=== PATIENT | female | born 1945 | race Caucasian/White ===

== ENCOUNTER 2018-12-25 14:05 | Emergency (ER) | payer OTHER ==
[2018-12-25] MEDS ORDERED: IPRATROPIUM BROM 0.5MG/2.5ML ONE (15:40)
[2018-12-25] MEDS ORDERED: METHYLPREDNISOLONE 125 MG INJ ONE (15:40)
[2018-12-25] MEDS ORDERED: LEVALBUTEROL 1.25 MG/3 ML NEB ONE (15:40)
[2018-12-25] MEDS ORDERED: ACETAMINOPHEN 325 MG/SUPP PR ONE (15:41)
[2018-12-25] MEDS ORDERED: NA CHLORIDE 0.9% 1,000 ML ONE (15:41)
[2018-12-25] MEDS ORDERED: CEFTRIAXONE/SWI 1gm 1 GM/10 ML SYR ONE (15:41)
[2018-12-25] MEDS ORDERED: NA CHLORIDE 0.9% 500 ML ONE (15:41)
[2018-12-25 15:49] LABS: Absolute Lymphocytes (CBC) 0.3 K/uL (0.7-4.9); Basophils % 0.7 % (0-1.3); Hematocrit 37.2 % (36.0-45.0); Lymphocytes % 5.5 % (15.3-44.8); MPV 8.9 fL (7.6-11.3)
[2018-12-25 15:52] LABS: Urine Blood 1+ (NEG); Urine Glucose NEGATIVE (NEG); Urine Protein TRACE (NEG); Urine pH 6.5 (5.0-7.0)
[2018-12-25] MEDS ORDERED: AZITHROMYCIN IV 500 MG in NA CHLORIDE 0.9% 250 ML IVPB ONE (16:00)
[2018-12-25 16:02] LABS: ALT/SGPT 58 U/L (12-78); AST/SGOT 45 U/L (15-37); Albumin 3.7 g/dL (3.4-5.0); Alkaline Phosphatase 52 U/L (45-117); BUN Blood Urea Nitrogen 10 mg/dL (7-18); Bicarbonate 29 mmol/L (21-32); Bilirubin Direct 0.3 mg/dL (0-0.2); Bilirubin Total 1.1 mg/dL (0.2-1.0); Glucose Level 125 mg/dL (74-106); Lipase 76 U/L (73-393); NT PRO-BNP 186 pg/mL (<125); Potassium 3.5 mmol/L (3.5-5.1); Protein, Total 7.1 g/dL (6.4-8.2); Sodium Level 137 mmol/L (136-145); Troponin (Emerg Dept Use Only) 0.03 ng/mL (0.0-0.045)
--- NOTE | 2018-12-25 17:26 | ER ---
Nurse's Notes [facility] Name: Bre Rodriguez Age: 73 yrs Sex: Female : 1945 Arrival Date: 12/25/2018 Time: 14:06 Bed 28 Private MD: Diagnosis: Dyspnea;Dyspnea, unspecified;Urinary tract infection, site not specified;Chronic obstructive pulmonary disease with (acute) exacerbation;Fever, unspecified;Immunodeficiency, unspecified-SECONDARY TO MEDS Presentation: 12/25 14:08 Presenting complaint: Patient states: "I was having trouble breathing last night and aj1 was really cold and shaking, and I have an upset stomach, and I have a hard time breathing because anytime I don't feel good it acts up with my COPD" Denies cough, congestion. Denies N/V/D. Transition of care: patient was not received from another setting of care. Onset of symptoms was December 24, 2018. Risk Assessment: Do you want to hurt yourself or someone else? Patient reports no desire to harm self or others. Initial Sepsis Screen: Does the patient meet any 2 criteria? HR > 90 bpm. No. Patient's initial sepsis screen is negative. Does the patient have a suspected source of infection? No. Patient's initial sepsis screen is negative. Care prior to arrival: None. 14:08 Method Of Arrival: Wheelchair aj1 14:08 Acuity: NELA 3 aj1 Triage Assessment: 14:09 General: Appears in no apparent distress. uncomfortable, Behavior is calm. Pain: aj1 Complains of pain in right hip Pain currently is 5 out of 10 on a pain scale. Neuro: Level of Consciousness is awake, alert, obeys commands. Cardiovascular: Patient's skin is warm and dry. Respiratory: Reports shortness of breath on exertion Airway is patent Respiratory effort is even, unlabored, Respiratory pattern is regular, symmetrical, Onset: The symptoms/episode began/occurred yesterday, the patient has mild shortness of breath. Historical: - Allergies: 14:09 No Known Allergies; aj1 - PMHx: 14:09 COPD; RA; aj1 - Immunization history:: Adult Immunizations up to date. - Ebola Screening: : Patient denies travel to an Ebola-affected area in the 21 days before illness onset. - Social history:: Smoking status: unknown. - Family history:: not pertinent. Screenin:15 Abuse screen: Denies threats or abuse. Nutritional screening: No deficits noted. tr5 Tuberculosis screening: No symptoms or risk factors identified. Fall Risk None identified. Assessment: 14:15 General: Appears uncomfortable, Behavior is calm, cooperative, appropriate for age. tr5 Pain: Denies pain. Neuro: Level of Consciousness is awake, alert, obeys commands, Oriented to person, place, time, situation, Press Tender are equal bilaterally Weakness Reports headache weakness. Cardiovascular: Heart tones present Capillary refill < 3 seconds Pulses are all present. Edema is absent. Rhythm is regular. Respiratory: Reports shortness of breath at rest Airway is patent Respiratory effort is even, Respiratory pattern is regular, symmetrical, Breath sounds are diminished bilaterally. GI: No signs and/or symptoms were reported involving the gastrointestinal system. : No signs and/or symptoms were reported regarding the genitourinary system. EENT: No signs and/or symptoms were reported regarding the EENT system. Derm: Skin is intact, Skin is dry, Skin is normal. Musculoskeletal: Capillary refill < 3 seconds, Range of motion: intact in all extremities. 15:00 Reassessment: Patient appears in no apparent distress at this time. Patient and/or tr5 family updated on plan of care and expected duration. Pain level reassessed. Patient is alert, oriented x 3, equal unlabored respirations, skin warm/dry/pink. 16:00 Reassessment: Patient appears in no apparent distress at this time. Patient and/or tr5 family updated on plan of care and expected duration. Pain level reassessed. Patient is alert, oriented x 3, equal unlabored respirations, skin warm/dry/pink. Pt's at bedside. Pt in bed watching tv. 17:00 Reassessment: Patient and/or family updated on plan of care and expected duration. Pain tr5 level reassessed. Patient is alert, oriented x 3, equal unlabored respirations, skin warm/dry/pink. Patient states feeling better. 18:00 Reassessment: No changes from previously documented assessment. Patient and/or family tr5 updated on plan of care and expected duration. Pain level reassessed. Patient is alert, oriented x 3, equal unlabored respirations, skin warm/dry/pink. Patient states symptoms have improved. Vital Signs: 14:09 BP 129 / 72; Pulse 102; Resp 20; Temp 100.4; Pulse Ox 96% on 3 lpm NC; Height 5 ft. 4 aj1 in. (162.56 cm) (R); Pain 5/10; 15:00 BP 131 / 70; Pulse 89; Resp 25; Pulse Ox 100% on 3% Nebulizer Mask; tr5 16:00 BP 109 / 63; Pulse 90; Resp 22; Pulse Ox 98% on 3% Nebulizer Mask; tr5 17:00 BP 91 / 74; Pulse 97; Resp 22; Pulse Ox 100% on 3 lpm NC; tr5 18:01 BP 99 / 59; Pulse 90; Resp 17; Temp 98.9(O); Pulse Ox 99% on 3 lpm NC; tr5 ED Course: 14:06 Patient arrived in ED. as 14:09 Triage completed. aj1 14:09 Arm band placed on Patient placed in waiting room, Patient notified of wait time. aj1 14:15 Bed in low position. Call light in reach. Side rails up X 1. Pulse ox on. NIBP on. tr5 14:37 Roderick Daniels, RN is Primary Nurse. tr5 14:47 Hector Rocha MD is Attending Physician. maverick 15:00 Inserted saline lock: 20 gauge in left antecubital area, using aseptic technique. tr5 Oxygen administration via nasal cannula \\T\\ 3L/min. 15:19 Initial lab(s) drawn, by vt, sent to lab. First set of blood cultures drawn by me, tr5 Urine collected: clean catch specimen, clear. 15:45 Second set of blood cultures drawn. tr5 16:03 Note: Pt refused portable chest xray. Angela notified at nurses station.. jr1 16:40 EKG done, by driver license technician. reviewed by Hector Rocha MD. sm3 17:23 Del Ochoa MD is Referral Physician. maverick 18:20 No provider procedures requiring assistance completed. IV discontinued. tr5 Administered Medications: 15:58 Drug: Tylenol 650 mg Route: PO; tr5 16:30 Follow up: Response: No adverse reaction tr5 15:59 Drug: NS 0.9% 500 ml Route: IV; Rate: bolus; Site: left antecubital; tr5 16:15 Follow up: Response: No adverse reaction; IV Status: Completed infusion; IV Intake: tr5 500ml 16:04 Drug: Rocephin 1 grams Route: IV; Rate: per protocol; Site: left antecubital; tr5 16:04 Drug: Zithromax 500 mg Route: IVPB; Infused Over: 1 hrs; Site: left antecubital; tr5 16:05 Drug: SOLU-Medrol 125 mg Route: IVP; Site: left antecubital; tr5 16:16 Follow up: Response: No adverse reaction tr5 16:05 Drug: Xopenex 3.75 mg Route: Inhalation; tr5 16:05 Drug: AtroVENT Aerosol 0.5 mg Route: Inhalation; tr5 16:16 Drug: NS 0.9% 1000 ml Route: IV; Rate: 125 ml/hr; Site: left antecubital; tr5 18:15 Drug: LevOfloxacin 750 mg Route: PO; tr5 18:17 Follow up: Response: Medication administered at discharge. tr5 18:15 Drug: predniSONE 20 mg Route: PO; tr5 18:16 Follow up: Response: Medication administered at discharge. tr5 Intake: 16:15 IV: 500ml; Total: 500ml. tr5 Outcome: 18:20 AMA AMA form signed tr5 18:20 Condition: stable 18:20 Discharge instructions given to patient, significant other, Instructed on discharge instructions, follow up and referral plans. medication usage, Demonstrated understanding of instructions, follow-up care, medications, Prescriptions given X 3. 18:22 Patient left the ED. tr5 Addendum: 12/28/2018 15:00 Addendum: Culture Results: Positive urine culture. Positive blood culture. pt was i w admitted to hospital on 12-26-18 for positive cultures, per Dr. Ochoa. Signatures: Carie Mason, RN RN Hector Vera MD MD cha Ringgold, Jennifer jr1 Dalila Choi Irene, RN Belem Yoo RN RN ss Montes, Shakira 3 Roderick Daniels, [place] RN tr5 Corrections: (The following items were deleted from the chart) 12/25 16:04 16:01 Note: PT REFUSED PORTABLE CHEST XRAY. ANGELA NOTIFIED AT NURSES STATION.. jr1 jr1 18:19 18:01 BP 99 / 59; Pulse 90bpm; Resp 17bpm; Pulse Ox 99% 3 lpm Nasal Cannula; tr5 tr5 12/29 07:42 12/28/2018 15:00 Addendum: Culture Results: Positive urine culture. No further action iw required. Bacteria sensitive to prescribed antibiotic. ss
--- NOTE | 2018-12-25 17:27 | EDPHYS ---
Physician Documentation [facility] Name: Bre Rodriguez Age: 73 yrs Sex: Female : 1945 Arrival Date: 12/25/2018 Time: 14:06 Bed 28 Private MD: ED Physician Hector Rocha HPI: 12/25 15:16 This 73 yrs old Female presents to ER via Wheelchair with complaints of maverick Breathing Difficulty, Headache. 15:16 The patient has shortness of breath at rest, with light activity. Onset: The maverick symptoms/episode began/occurred 2 day(s) ago. Duration: The symptoms are continuous, and are steadily getting worse. The patient's shortness of breath has no apparent modifying factors. Associated signs and symptoms: Pertinent positives: non-productive cough, dizziness, fever. Severity of symptoms: At their worst the symptoms were mild moderate in the emergency department the symptoms are unchanged. The patient has not experienced similar symptoms in the past. Historical: - Allergies: 14:09 No Known Allergies; aj1 - PMHx: 14:09 COPD; RA; aj1 - Immunization history:: Adult Immunizations up to date. - Ebola Screening: : Patient denies travel to an Ebola-affected area in the 21 days before illness onset. - Social history:: Smoking status: unknown. - Family history:: not pertinent. ROS: 15:16 Constitutional: Negative for fever, chills, and weight loss, Eyes: Negative for injury, maverick pain, redness, and discharge, ENT: Negative for injury, pain, and discharge, Neck: Negative for injury, pain, and swelling, Cardiovascular: Negative for chest pain, palpitations, and edema, Abdomen/GI: Negative for abdominal pain, nausea, vomiting, diarrhea, and constipation, Back: Negative for injury and pain, : Negative for injury, bleeding, discharge, and swelling, MS/Extremity: Negative for injury and deformity, Skin: Negative for injury, rash, and discoloration, Neuro: Negative for headache, weakness, numbness, tingling, and seizure, Psych: Negative for depression, anxiety, suicide ideation, homicidal ideation, and hallucinations, Allergy/Immunology: Negative for hives, rash, and allergies, Endocrine: Negative for neck swelling, polydipsia, polyuria, polyphagia, and marked weight changes, Hematologic/Lymphatic: Negative for swollen nodes, abnormal bleeding, and unusual bruising. 15:16 Respiratory: Positive for cough, shortness of breath, at rest. Exam: 15:16 Constitutional: This is a well developed, well nourished patient who is awake, alert, maverick and in no acute distress. Head/Face: Normocephalic, atraumatic. Eyes: Pupils equal round and reactive to light, extra-ocular motions intact. Lids and lashes normal. Conjunctiva and sclera are non-icteric and not injected. Cornea within normal limits. Periorbital areas with no swelling, redness, or edema. ENT: Nares patent. No nasal discharge, no septal abnormalities noted. Tympanic membranes are normal and external auditory canals are clear. Oropharynx with no redness, swelling, or masses, exudates, or evidence of obstruction, uvula midline. Mucous membranes moist. Neck: Trachea midline, no thyromegaly or masses palpated, and no cervical lymphadenopathy. Supple, full range of motion without nuchal rigidity, or vertebral point tenderness. No Meningismus. Chest/axilla: Normal chest wall appearance and motion. Nontender with no deformity. No lesions are appreciated. Abdomen/GI: Soft, non-tender, with normal bowel sounds. No distension or tympany. No guarding or rebound. No evidence of tenderness throughout. Back: No spinal tenderness. No costovertebral tenderness. Full range of motion. Female : Normal external genitalia. Skin: Warm, dry with normal turgor. Normal color with no rashes, no lesions, and no evidence of cellulitis. MS/ Extremity: Pulses equal, no cyanosis. Neurovascular intact. Full, normal range of motion. Neuro: Awake and alert, GCS 15, oriented to person, place, time, and situation. Cranial nerves II-XII grossly intact. Motor strength 5/5 in all extremities. Sensory grossly intact. Cerebellar exam normal. Normal gait. Psych: Awake, alert, with orientation to person, place and time. Behavior, mood, and affect are within normal limits. 15:16 Cardiovascular: Rate: tachycardic, Rhythm: regular, Pulses: Pulses are 4+ in bilateral radial, brachial, femoral, popliteal, posterior tibial and and dorsalis pedis arteries.. Heart sounds: normal, Edema: is not appreciated, JVD: is not appreciated. Vital Signs: 14:09 BP 129 / 72; Pulse 102; Resp 20; Temp 100.4; Pulse Ox 96% on 3 lpm NC; Height 5 ft. 4 aj1 in. (162.56 cm) (R); Pain 5/10; 15:00 BP 131 / 70; Pulse 89; Resp 25; Pulse Ox 100% on 3% Nebulizer Mask; tr5 16:00 BP 109 / 63; Pulse 90; Resp 22; Pulse Ox 98% on 3% Nebulizer Mask; tr5 17:00 BP 91 / 74; Pulse 97; Resp 22; Pulse Ox 100% on 3 lpm NC; tr5 18:01 BP 99 / 59; Pulse 90; Resp 17; Temp 98.9(O); Pulse Ox 99% on 3 lpm NC; tr5 MDM: 14:47 Patient medically screened. [facility] 15:17 Data reviewed: vital signs, nurses notes, lab test result(s), EKG, radiologic studies, maverick plain films. 12/25 15:15 Order name: Basic Metabolic Panel; Complete Time: 17:15 [facility] 12/25 15:15 Order name: CBC with Diff; Complete Time: 17:15 [facility] 12/25 15:15 Order name: LFT's; Complete Time: 17:15 [facility] 12/25 15:15 Order name: Magnesium; Complete Time: 17:15 [facility] 12/25 15:15 Order name: NT PRO-BNP; Complete Time: 17:15 [facility] 12/25 15:15 Order name: PT-INR; Complete Time: 17:15 [facility] 12/25 15:15 Order name: Troponin (emerg Dept Use Only); Complete Time: 17:15 [facility] 12/25 15:15 Order name: Blood Culture Adult (2) [facility] 12/25 15:15 Order name: Lipase; Complete Time: 17:15 [facility] 12/25 15:15 Order name: Urine Culture [facility] 12/25 15:15 Order name: Lactate; Complete Time: 17:15 [facility] 12/25 15:39 Order name: Urine Dipstick--Ancillary (enter results); Complete Time: 17:15 12/25 15:15 Order name: EKG; Complete Time: 15:17 [facility] 12/25 15:15 Order name: Cardiac monitoring; Complete Time: 16:05 [facility] 12/25 15:15 Order name: EKG - Nurse/Tech; Complete Time: 16:05 [facility] 12/25 15:15 Order name: IV Saline Lock; Complete Time: 15:34 [facility] 12/25 15:15 Order name: Labs collected and sent; Complete Time: 15:34 [facility] 12/25 15:15 Order name: O2 Per Protocol; Complete Time: 15:34 [facility] 12/25 15:15 Order name: O2 Sat Monitoring; Complete Time: 15:34 [facility] 12/25 15:15 Order name: Urine Dipstick-Ancillary (obtain specimen); Complete Time: 15:34 [facility] Administered Medications: 15:58 Drug: Tylenol 650 mg Route: PO; tr5 16:30 Follow up: Response: No adverse reaction tr5 15:59 Drug: NS 0.9% 500 ml Route: IV; Rate: bolus; Site: left antecubital; tr5 16:15 Follow up: Response: No adverse reaction; IV Status: Completed infusion; IV Intake: tr5 500ml 16:04 Drug: Rocephin 1 grams Route: IV; Rate: per protocol; Site: left antecubital; tr5 16:04 Drug: Zithromax 500 mg Route: IVPB; Infused Over: 1 hrs; Site: left antecubital; tr5 16:05 Drug: SOLU-Medrol 125 mg Route: IVP; Site: left antecubital; tr5 16:16 Follow up: Response: No adverse reaction tr5 16:05 Drug: Xopenex 3.75 mg Route: Inhalation; tr5 16:05 Drug: AtroVENT Aerosol 0.5 mg Route: Inhalation; tr5 16:16 Drug: NS 0.9% 1000 ml Route: IV; Rate: 125 ml/hr; Site: left antecubital; tr5 18:15 Drug: LevOfloxacin 750 mg Route: PO; tr5 18:17 Follow up: Response: Medication administered at discharge. tr5 18:15 Drug: predniSONE 20 mg Route: PO; tr5 18:16 Follow up: Response: Medication administered at discharge. tr5 Disposition: 12/25/18 17:26 Patient has left against medical advice. Impression: Dyspnea, Dyspnea, unspecified, Urinary tract infection, site not specified, Chronic obstructive pulmonary disease with (acute) exacerbation, Fever, unspecified, Immunodeficiency, unspecified - SECONDARY TO MEDS. - Patients states they are going to Home. - Condition is Stable. - Discharge Instructions: Chronic Obstructive Pulmonary Disease, Dysuria, Fever, Adult, Shortness of Breath, Urinary Tract Infection, Adult, Shortness of Breath, [id number], Chronic Obstructive Pulmonary Disease Exacerbation, Urinary Tract Infection, Adult, [id number]. - Prescriptions for Levaquin 500 mg Oral Tablet - take 1 tablet by ORAL route once daily for 8-10 days; 9 tablet. Medrol (Mango) 4 mg Oral Tablets, Dose Pack - take 1 tablet by ORAL route as directed - follow package instructions; 1 packet. Albuterol Sulfate 90 mcg/actuation - inhale 1-2 puff by INHALATION route every 4-6 hours; 1 Inhaler. Follow up: Del Ochoa MD; When: 2 - 3 days; Reason: Recheck today's complaints, Continuance of care, Re-evaluation by your physician. - Problem is new. - Symptoms have improved. Signatures: Dispatcher [employer] Carie Cloud RN RN aj1 Hector Rocha MD MD cha Rodriguez, Tommie, RN RN tr5 Corrections: (The following items were deleted from the chart) 16:22 15:17 Chest Single View+[id number].[id number] ordered. [facility] 18:22 17:26 12/25/2018 17:26 Patients has left against medical advice. Impression: Dyspnea; tr5 Dyspnea, unspecified; Urinary tract infection, site not specified; Chronic obstructive pulmonary disease with (acute) exacerbation; Fever, unspecified; Immunodeficiency, unspecified - SECONDARY TO MEDS. Patient states they are going to Home. Condition is Stable. Follow up: Del Ochoa; When: 2 - 3 days; Reason: Recheck today's complaints, Continuance of care, Re-evaluation by your physician. Problem is new. Symptoms have improved. maverick
[2018-12-25] MEDS ORDERED: levoFLOXacin 750 MG TAB ONE (18:04)
[2018-12-25] MEDS ORDERED: predniSONE 20 MG TAB ONE (18:05)
[2018-12-25 18:58] VITALS: BP 99/59; TEMP 98.9; O2SAT 99
--- NOTE | 2018-12-26 07:50 | EKG ---
Test Date: 2018-12-25 Test Time: 15:39:10 Location Man: [facility] MEASUREMENT RESULTS: Intervals: Rate: 95 [place]: 150 QRSD: 90 QT: 558 QTc: 701 [place]: P: 83 [place]: 150 QRS: 90 T: 82 INTERPRETIVE STATEMENTS: Normal sinus rhythm Rightward axis Nonspecific T wave abnormality Prolonged QT Abnormal ECG Compared to ECG 04/10/2014 19:29:45 Right-axis deviation now present T-wave abnormality now present Prolonged QT interval now present Electronically Signed On 12-26-18 07:50:04 CDT by Drew Rivera
== END 2018-12-25 18:22 | disposition left against medical advice (07) ==
LOC: ER 14:05
DX: J44.1 Chronic obstructive pulmonary disease with (acute) exacerbation (principal); R50.9 Fever, unspecified; N39.0 Urinary tract infection, site not specified; D84.9 Immunodeficiency, unspecified
CPT/HCPCS: 36415; 80048; 80076; 81003; 83605; 83690; 83735; 83880; 84484; 85025; 85610; 87040; 87077; 87086; 87088; 87186; 87205; 93005; 96374; 96375; 99285; J0456; J0696; J2930; J7030; J7512

== ENCOUNTER 2018-12-26 14:43 | Inpatient (IN) | payer OTHER ==
[2018-12-26 15:58] LABS: Absolute Lymphocytes (CBC) 0.8 K/uL (0.7-4.9); Basophils % 0.2 % (0-1.3); Hematocrit 36.1 % (36.0-45.0); Lymphocytes % 7.3 % (15.3-44.8); MPV 9.5 fL (7.6-11.3); RBC Red Blood Cell Count 4.02 M/uL (3.86-4.86)
[2018-12-26 16:14] LABS: Albumin 3.6 g/dL (3.4-5.0); Bilirubin Total 0.6 mg/dL (0.2-1.0); Potassium 4.1 mmol/L (3.5-5.1)
--- NOTE | 2018-12-26 16:23 | RAD REPORT ---
EXAM DESCRIPTION: RAD - Chest Single View - 12/26/2018 3:52 pm CLINICAL HISTORY: COPD, possible pneumonia COMPARISON: March 2014 TECHNIQUE: AP portable chest image was obtained 1549 hours . FINDINGS: Fibrotic and emphysematous lung changes are present. Calcified mass or granuloma in the le ft upper lung field is present. Lung markings are more pronounced in the left base. This is increased slightly over the comparison. Early left lung base pneumonia is possible. There is no consolidation that this time. Heart and vasculature are normal. No measurable pleural effusion and no pneumothorax. No acute bony abnormality seen. No acute aortic findings suspected. IMPRESSION: Fibro emphysematous lung changes are present with focally more prominent interstitial ma rkings in the left base. Left base markings are slightly greater than the comparison and early left lung base pneumonia is pos sible.
[2018-12-26 17:29] LABS: Blood Morphology Comment NOT SEEN (NOT SEEN); Platelet Estimate ADEQ; Urine White Blood Cell Casts OK
--- NOTE | 2018-12-26 17:43 | ER ---
Nurse's Notes [facility] Name: Bre Rodriguez Age: 73 yrs Sex: Female : 1945 Arrival Date: 12/26/2018 Time: 14:48 Bed 23 Private MD: Heri Ochoa C Diagnosis: Urinary tract infection, site not specified Presentation: 12/26 15:06 Presenting complaint: Presenting complaint: Patient states: "Dr. Ochoa sent me here aa5 because my blood culture or my urine culture was positive". Pt states "I was just here yesterday and they wanted to admit me but I refused". Transition of care: patient was not received from another setting of care. Onset of symptoms was December 26, 2018. Risk Assessment: Do you want to hurt yourself or someone else? Patient reports no desire to harm self or others. Care prior to arrival: None. 15:06 Acuity: NELA 3 aa5 15:06 Method Of Arrival: Wheelchair aa5 16:00 Initial Sepsis Screen: Does the patient meet any 2 criteria? No. Patient's initial tr5 sepsis screen is negative. Does the patient have a suspected source of infection? Yes: Dysuria/Frequency/Urgency/UTI. Triage Assessment: 20:03 Respiratory: Onset: The symptoms/episode began/occurred. tr5 Historical: - Allergies: 15:09 No Known Allergies; aa5 - PMHx: 15:09 COPD; RA; Home O2 via NC; aa5 - Immunization history:: Flu vaccine is not up to date. - Social history:: Smoking status: Patient/guardian denies using tobacco. - Ebola Screening: : No symptoms or risks identified at this time. Screenin:30 Abuse screen: Denies threats or abuse. Nutritional screening: No deficits noted. tr5 Tuberculosis screening: No symptoms or risk factors identified. Fall Risk None identified. Assessment: 15:30 General: Appears in no apparent distress. comfortable, Behavior is calm, cooperative, tr5 appropriate for age. Pain: Denies pain. Neuro: Level of Consciousness is awake, alert, obeys commands, Oriented to person, place, time, [employer] are equal bilaterally Moves all extremities. Cardiovascular: Heart tones present Capillary refill < 3 seconds Rhythm is regular. Respiratory: Reports shortness of breath at rest Airway is patent Respiratory effort is even, Respiratory pattern is regular, Breath sounds are diminished bilaterally. GI: No signs and/or symptoms were reported involving the gastrointestinal system. : No signs and/or symptoms were reported regarding the genitourinary system. EENT: No signs and/or symptoms were reported regarding the EENT system. Derm: Skin is fragile, Skin is dry, Skin is normal. Musculoskeletal: Capillary refill < 3 seconds, Range of motion: intact in all extremities. 16:44 Reassessment: Patient appears in no apparent distress at this time. Patient and/or tr5 family updated on plan of care and expected duration. Pain level reassessed. Patient is alert, oriented x 3, equal unlabored respirations, skin warm/dry/pink. 17:30 Reassessment: Patient appears in no apparent distress at this time. No changes from tr5 previously documented assessment. Patient is alert, oriented x 3, equal unlabored respirations, skin warm/dry/pink. 19:32 Reassessment: Called floor to give patient report. RN not available at this moment. She tr5 will call back to receive report per charge nurse Jm. Vital Signs: 15:09 BP 112 / 65; Pulse 81; Resp 20 S; Temp 98.0(O); Pulse Ox 96% on 2 lpm NC; aa5 16:20 BP 120 / 73; Pulse 82; Resp 20 S; Pulse Ox 98% on R/A; ca1 17:30 BP 119 / 66; Pulse 75; Resp 17; Pulse Ox 100% on 3 lpm NC; tr5 17:30 BP 117 / 66; Pulse 80; Resp 19; Pulse Ox 99% on 3 lpm NC; tr5 18:30 BP 129 / 80; Pulse 79; Resp 20; Pulse Ox 100% on 3 lpm NC; tr5 ED Course: 14:48 Patient arrived in ED. as 14:50 Heri Ochoa MD is Private Physician. as 15:06 Arm band placed on. aa5 15:08 Triage completed. aa5 15:11 Luana Guo FNP is [facility]. nh 15:11 Ambrocio Ledezma MD is Attending Physician. nh 15:25 Roderick Daniels, [place] is Primary Nurse. tr5 15:30 Placed in gown. Bed in low position. Call light in reach. Pulse ox on. NIBP on. tr5 15:30 Inserted saline lock: 22 gauge in left antecubital area, using aseptic technique. tr5 15:39 Initial lab(s) drawn, by me, sent to lab. tr5 15:53 CXR XRAY In Process Unspecified. EDMS 15:55 Awaiting lab results, Awaiting radiology results. tr5 17:41 Heri Ochoa MD is Hospitalizing Provider. nh 19:40 No provider procedures requiring assistance completed. Patient admitted, IV remains in tr5 place. Administered Medications: 18:07 Drug: Cefepime 1 grams Route: IVPB; Rate: 200 ml/hr; Infused Over: 30 mins; Site: left tr5 antecubital; 18:48 Follow up: Response: No adverse reaction; IV Status: Completed infusion tr5 18:49 Drug: LevaQUIN 750 mg Volume: 150 ml; Route: IVPB; Infused Over: 90 mins; Site: left tr5 antecubital; Outcome: 17:42 Decision to Hospitalize by Provider. nh 19:40 Admitted to Med/surg tr5 19:40 Condition: stable 19:40 Instructed on the need for admit. 20:04 Patient left the ED. tr5 Signatures: Dispatcher [employer] EDMS Luana Guo, OCCUPATIONAL THERAPY SPECIALIST OCCUPATIONAL THERAPY SPECIALIST ak Dalila Choi as Symone Randle, RN RN aa5 Em Carr, RN RN [facility] Roderick Daniels, [place] RN tr5 Corrections: (The following items were deleted from the chart) 19:40 17:30 BP 119 / 66; Pulse 75bpm; Resp 17bpm; Pulse Ox 100% RA; tr5 tr5 20:03 16:00 Initial Sepsis Screen: Does the patient meet any 2 criteria? No. Patient's tr5 initial sepsis screen is negative. Does the patient have a suspected source of infection? No. Patient's initial sepsis screen is negative. tr5
--- NOTE | 2018-12-26 17:44 | EDPHYS ---
Physician Documentation [facility] Name: Bre Rodriguez Age: 73 yrs Sex: Female : 1945 Arrival Date: 12/26/2018 Time: 14:48 Bed 23 Private MD: Heri Carnes C ED Physician Ambrocio Ledezma HPI: 12/26 17:39 This 73 yrs old Female presents to ER via Wheelchair with complaints of nh Urinary Problem, Shortness Of Breath. 17:39 Onset: The symptoms/episode began/occurred last week. Associated signs and symptoms: nh Pertinent positives: abdominal pain, dysuria. Modifying factors: The patient symptoms are alleviated by nothing, the patient symptoms are aggravated by nothing. The patient has experienced similar episodes in the past, several times, today's symptoms are similar. The patient has been recently seen by a physician: Patient seen here yesterday and advised to be admitted. Patient signed out AMA. Patient back today per dr carnes for admission for failed outpatient treatment. Historical: - Allergies: 15:09 No Known Allergies; aa5 - PMHx: 15:09 COPD; RA; Home O2 via NC; aa5 - Immunization history:: Flu vaccine is not up to date. - Social history:: Smoking status: Patient/guardian denies using tobacco. - Ebola Screening: : No symptoms or risks identified at this time. ROS: 17:39 Constitutional: Negative for fever, chills, and weight loss, Eyes: Negative for injury, nh pain, redness, and discharge, ENT: Negative for injury, pain, and discharge, Neck: Negative for injury, pain, and swelling, Cardiovascular: Negative for chest pain, palpitations, and edema, Back: Negative for injury and pain, : Negative for injury, bleeding, discharge, and swelling, MS/Extremity: Negative for injury and deformity, Skin: Negative for injury, rash, and discoloration, Neuro: Negative for headache, weakness, numbness, tingling, and seizure, Psych: Negative for depression, anxiety, suicide ideation, homicidal ideation, and hallucinations, Allergy/Immunology: Negative for hives, rash, and allergies. 17:39 Respiratory: Positive for shortness of breath, Negative for cough, hemoptysis, pleurisy, sputum production. 17:39 Abdomen/GI: Positive for abdominal pain. 17:39 : Positive for urinary symptoms. Exam: 17:39 Constitutional: This is a well developed, well nourished patient who is awake, alert, nh and in no acute distress. Head/Face: Normocephalic, atraumatic. Eyes: Pupils equal round and reactive to light, extra-ocular motions intact. Lids and lashes normal. Conjunctiva and sclera are non-icteric and not injected. Cornea within normal limits. Periorbital areas with no swelling, redness, or edema. ENT: Nares patent. No nasal discharge, no septal abnormalities noted. Tympanic membranes are normal and external auditory canals are clear. Oropharynx with no redness, swelling, or masses, exudates, or evidence of obstruction, uvula midline. Mucous membranes moist. Neck: Trachea midline, no thyromegaly or masses palpated, and no cervical lymphadenopathy. Supple, full range of motion without nuchal rigidity, or vertebral point tenderness. No Meningismus. Chest/axilla: Normal chest wall appearance and motion. Nontender with no deformity. No lesions are appreciated. Cardiovascular: Regular rate and rhythm with a normal S1 and S2. No gallops, murmurs, or rubs. Normal PMI, no JVD. No pulse deficits. Abdomen/GI: Soft, non-tender, with normal bowel sounds. No distension or tympany. No guarding or rebound. No evidence of tenderness throughout. Back: No spinal tenderness. No costovertebral tenderness. Full range of motion. Female : Normal external genitalia. Skin: Warm, dry with normal turgor. Normal color with no rashes, no lesions, and no evidence of cellulitis. MS/ Extremity: Pulses equal, no cyanosis. Neurovascular intact. Full, normal range of motion. 17:39 Respiratory: mild respiratory distress is noted, Respirations: labored breathing, that is mild, pursed lip breathing, that is mild, Breath sounds: no acute changes. Vital Signs: 15:09 BP 112 / 65; Pulse 81; Resp 20 S; Temp 98.0(O); Pulse Ox 96% on 2 lpm NC; aa5 16:20 BP 120 / 73; Pulse 82; Resp 20 S; Pulse Ox 98% on R/A; ca1 17:30 BP 119 / 66; Pulse 75; Resp 17; Pulse Ox 100% on 3 lpm NC; tr5 17:30 BP 117 / 66; Pulse 80; Resp 19; Pulse Ox 99% on 3 lpm NC; tr5 18:30 BP 129 / 80; Pulse 79; Resp 20; Pulse Ox 100% on 3 lpm NC; tr5 MDM: 15:11 Patient medically screened. ca 17:39 Data reviewed: vital signs, nurses notes, old medical records, lab test result(s), nh radiologic studies, I have discussed the patient's presentation/case with the attending Emergency Department Physician; and as a result, I will admit patient. Counseling: I had a detailed discussion with the patient and/or guardian regarding: the historical points, exam findings, and any diagnostic results supporting the discharge/admit diagnosis, lab results, radiology results, the need for further work-up and treatment in the hospital. 12/26 15:24 Order name: CBC with Diff; Complete Time: 17:31 ca 12/26 15:24 Order name: CMP; Complete Time: 16:37 ca 12/26 15:24 Order name: CXR XRAY; Complete Time: 16:37 ca 12/26 16:04 Order name: CBC Smear Scan; Complete Time: 17:31 [facility] 12/26 16:10 Order name: Urine Dipstick--Ancillary (enter results) 12/26 15:24 Order name: Urine Dipstick-Ancillary (obtain specimen); Complete Time: 16:11 ca Administered Medications: 18:07 Drug: Cefepime 1 grams Route: IVPB; Rate: 200 ml/hr; Infused Over: 30 mins; Site: left tr5 antecubital; 18:48 Follow up: Response: No adverse reaction; IV Status: Completed infusion tr5 18:49 Drug: LevaQUIN 750 mg Volume: 150 ml; Route: IVPB; Infused Over: 90 mins; Site: left tr5 antecubital; Disposition: 12/27 07:38 Co-signature as Attending Physician, Ambrocio Ledezma MD. rn Disposition: 12/26/18 17:42 Hospitalization ordered by Heri Carnes for Observation. Preliminary diagnosis is Urinary tract infection, site not specified. - Bed requested for Telemetry/MedSurg (observation). - Status is Observation. tr5 - Condition is Stable. - Problem is new. - Symptoms are unchanged. UTI on Admission? Yes Signatures: Dispatcher [employer] EDAngela Pat Sari, Luana, SPECIAL NEEDS CAREGIVER SPECIAL NEEDS CAREGIVER ca Ambrocio Ledezma MD MD rn Calderon, Audri, RN RN aa5 Roderick Daniels RN RN tr5 Corrections: (The following items were deleted from the chart) 12/26 18:39 17:42 Hospitalization Ordered by A Don CARCAMO for Observation. Preliminary diagnosis is bd Urinary tract infection, site not specified. Bed requested for Telemetry/MedSurg (observation). Status is Observation. Condition is Stable. Problem is new. Symptoms are unchanged. UTI on Admission? Yes. ca 20:04 18:39 12/26/2018 17:42 Hospitalization Ordered by A Don CARCAMO for Observation. tr5 Preliminary diagnosis is Urinary tract infection, site not specified. Bed requested for Telemetry/MedSurg (observation). Status is Observation. Condition is Stable. Problem is new. Symptoms are unchanged. UTI on Admission? Yes. bd
[2018-12-26] MEDS ORDERED: CEFEPIME 1 GM/100 ML BAG IV ONE (17:59)
[2018-12-26] MEDS ORDERED: Levofloxacin 750mg IV 750 MG/150 ML BAG IV ONE (17:59)
[2018-12-26 20:26] LABS: Urine Blood 1+ (NEG); Urine Glucose NEGATIVE (NEG); Urine Protein TRACE (NEG); Urine Specific Gravity >1.030 (1.005-1.030); Urine pH 5.5 (5.0-7.0)
[2018-12-26] MEDS ORDERED: IPRATROPIUM BROM 0.5MG/2.5ML NEB PRN (20:37)
[2018-12-26] MEDS ORDERED: ONDANSETRON 4 MG/2 ML VIAL IV PRN (20:37)
[2018-12-26] MEDS ORDERED: ALBUTEROL 2.5 MG/3 ML NEB SOL NEB PRN (20:37)
[2018-12-26 22:54] LABS: Urine Appearance CLOUDY; Urine Bilirubin NEGATIVE (NEG); Urine Blood TRACE (NEG); Urine Color YELLOW; Urine Glucose NEGATIVE (NEG); Urine Protein TRACE (NEG); Urine Specific Gravity 1.015 (1.005-1.030); Urine Urobilinogen 0.2 mg/dL (0.2-1.0); Urine pH 5.5 (5.0-7.0)
[2018-12-26 23:11] LABS: Urine Microscopic Reflex ORDER UMIC
[2018-12-26 23:13] LABS: Urine Bacteria <20 /HPF (<20); Urine Culture Reflex Order NOT NEEDED; Urine RBC <5 /HPF (NONE SEEN)
[2018-12-27 00:19] VITALS: BMI 28.3
[2018-12-27 06:04] LABS: Absolute Lymphocytes (CBC) 1.3 K/uL (0.7-4.9); Basophils % 0.7 % (0-1.3); Hematocrit 31.8 % (36.0-45.0); Lymphocytes % 18.2 % (15.3-44.8); MPV 9.1 fL (7.6-11.3); RBC Red Blood Cell Count 3.56 M/uL (3.86-4.86)
[2018-12-27 06:24] LABS: Potassium 4.1 mmol/L (3.5-5.1)
[2018-12-27] MEDS ORDERED: acetaZOLAMIDE 250 MG TAB PO PRN (08:43)
[2018-12-27] MEDS: Umeclidinium Brm/Vilanterol Tr [Anoro Ellipta 62.5-25 Mcg Inh] IH SCH (09:00)
[2018-12-27] MEDS ORDERED: ALBUTEROL INHALER 60 PUFF/8 GM IH PRN (09:00)
[2018-12-27] MEDS ORDERED: CEFEPIME 1 GM/VIAL IV SCH (09:00)
[2018-12-27] MEDS: ASPIRIN 81 MG CHEWABLE TABLET PO SCH (09:23)
[2018-12-27] MEDS: FOLIC ACID 1 MG TABLET PO SCH ×2 (09:23→21:06)
[2018-12-27] MEDS: HYDROXYCHLOROQUINE 200MG TAB PO SCH ×2 (09:24→21:06)
[2018-12-27] MEDS: ENOXAPARIN 40 MG/0.4 ML SQ SCH (09:24)
[2018-12-27] MEDS: CEFEPIME/SWI 1gm 10 ML IVP SCH (09:24)
[2018-12-27] MEDS: Levofloxacin500mg IV 500 MG/100 ML BAG IV SCH (17:21)
[2018-12-27] MEDS ORDERED: ALPRAZOLAM 0.25 MG TABLET PO ONE (21:00)
[2018-12-27] MEDS: DULOXETINE 20 MG CAP PO SCH (21:06)
--- NOTE | 2018-12-27 22:46 | HP ---
Date of Admission: 12/26/2018 Chief Complaint: Fever, chills, weakness, and shortness of breath. History Of Present Illness: This is a 73-year-old female patient who is not compliant with office ap pointment. She did not come to office for followup earlier this year. She was asked to do so. She sees her personal service representative regularly. I am not sure if she sees Dr. Luke from Pulmonary regularly o r not. In any case, day before yesterday, she came into emergency room with fever, chills, generaliz ed weakness, body ache, and shortness of breath. After she was evaluated in the ER, her urinalysis w as abnormal, consistent with urinary tract infection, and ER physician contacted me. We were concern ed about possibility of sepsis. The way she presented and it was recommended for patient to be admit dale to the hospital, but the patient refused to stay in the hospital, and she left hospital against m edical advice from emergency room. ER physician sent her home with a prescription for antibiotic, Le vaquin and he did give her some antibiotic IV while she was in the emergency room. Patient even refu sed to get a chest x-ray done at that time while she was in the emergency room. Yesterday morning, a round 9 a.m., when I came to the hospital, I started reviewing her culture results and her blood cult ure started to show gram-negative rods in 1 bottle. Urine culture was pending. As soon as I saw thi s result, I immediately contacted patient, talked to patient as well as her on the phone, and gave my recommendation that she has sepsis with this positive blood culture growing gram-negative ro ds and she needs to come to emergency room and will need to be re-evaluated and then admitted to the hospital with this problem of infection, which is sepsis. She was reluctant to do so, but then after I talked to her, she was agreeable to come to emergency room, and she came to ER in the afternoon. I advised her to come back to the hospital as soon as possible, but she wanted to wait until afternoo n, so she came in the afternoon. After she was evaluated in the ER, she was admitted to the hospital . The patient has felt better since her first ER visit and receiving antibiotics. She has had some burning sensation with urination lately last few days, but that has improved after antibiotic was sta rted. No hematuria. No nausea or vomiting. She has chronic problem with shortness of breath due to her severe COPD, and she is oxygen dependent. She uses BiPAP at home every night. Allergies: NO KNOWN ALLERGIES. Medications: List reviewed. Review of Systems: Constitutional: As mentioned above. Respiratory: As mentioned above. Genitourinary: As mentioned above. All other systems reviewed and negative. Past Medical History: Significant for osteoarthritis, rheumatoid arthritis, COPD, gastroesophageal r eflux disease, depression, hyperlipidemia, and left pulmonary nodule, for which she has refused any f urther workup or treatment even if it may be a lung cancer, she does not want any treatment, and this was detected in 2013, and after that, she refused any further x-rays or any further investigation on it. Past Surgical History: Unremarkable. Family History: Father had stroke; mother, dementia; brother, diabetes; another brother with heart d isease. Father also had diabetes and heart disease. Social History: Positive for smoking. Use of alcohol negative. Physical Examination: Vital Signs: This morning, temperature 97.7, pulse 84, respiratory rate 16, blood pressure 123/61, o xygen saturation 97%. Height 5 feet 4 inches, weight 165 pounds. General: Awake, alert, oriented, not in distress. HEENT: Head atraumatic, normocephalic. Conjunctivae nonerythematous. Sclerae white. Mouth, no thr ush or edema noted. Ears/Nose, no mass, lesion, discharge noted. Neck: Supple. No JVD, lymph nodes, bruit, thyromegaly noted. Lungs: Bilateral good equal air entry. Clear to auscultation. No rhonchi. No rales. Heart: Normal heart sounds, no murmur or gallop. Abdomen: Soft, bowel sounds normal. No guarding, rigidity, tenderness, mass, hepatosplenomegaly, dis tention, or bruit noted. Extremities: No leg edema. No calf tenderness. Skin: No rash, ulcer, cellulitis. Lymphatics: No lymph node enlargement in neck, supraclavicular, infraclavicular region. Neuro: No focal neurological deficit. Chest: Unremarkable. External Genitalia: Deferred. Rectal: Deferred. Laboratory Data: Yesterday, white count 11.6, hemoglobin 11.7, platelets 229. Today, white count 7. 1, hemoglobin 11.1, platelets 206. Yesterday, sodium 144, potassium 4.1, chloride 105 bicarb 31, BUN 16, creatinine 0.72, glucose 95. Liver function tests unremarkable. Today, sodium 143, potassium 4 .1, chloride 104, bicarb 33, BUN 19, creatinine 0.69, glucose 101. Urinalysis from yesterday, trace blood, otherwise nitrite negative, leukocytes negative, bacteria less than 20, wbc less than 5. Ches t x-ray from yesterday shows fibro-emphysematous lung changes, presence of calcified mass or granulom a in the left upper lung and prominent interstitial marking, left lung base. Her previous blood work on 12/25/2018, when she came into emergency room and left against medical advice, at that time, whit e count was 5.8, hemoglobin 12.3, platelets 190. Chemistry was unremarkable at that time except SGOT 45, lipase 76. Urinalysis positive for nitrite, esterase was trace. Blood culture as of yesterday, gram-negative rods and as of today, no new information on blood culture. Urine culture result avail able today showing E coli; it is sensitive to Cipro, Levaquin, cefazolin, and multiple other antibiot ics. Impression: 1.Sepsis. Organism, gram-negative rods. 2.Urinary tract infection. Organism, Escherichia coli. 3.Anemia, unspecified. 4.Chronic obstructive pulmonary disease. 5.Pulmonary nodule, rule out neoplasm. 6.Rheumatoid arthritis. 7.Osteoarthritis. 8.Gastroesophageal reflux disease. 9.Depression. 10.Hyperlipidemia. Plan: Admit patient to hospital for further evaluation and management of this problem. Patient is a ppropriate for inpatient and is expected to spend 2 midnights in hospital. We will go ahead and ____ . We will not give her any immunosuppressive medication that she normally takes at home, and I have advised her to skip the dose for next week. I will continue Levaquin and cefepime per order. Follow up on culture results. Hopefully, blood culture results should be available by tomorrow. Corona n is to give her IV antibiotics for 48-72 hours, and then, we will be able to discharge her to go kane e with oral antibiotics. Details of plan of treatment discussed with patient. DVT prophylaxis will be given using Lovenox. SAMRA/GRIFFIN Voice ID: [id number]
[2018-12-27] MEDS: TRAMADOL HCL 50 MG TAB PO PRN (23:56)
[2018-12-28] MEDS: CEFEPIME/SWI 1gm 10 ML IVP SCH (08:12)
[2018-12-28] MEDS: HYDROXYCHLOROQUINE 200MG TAB PO SCH ×2 (08:13→22:14)
[2018-12-28] MEDS: Umeclidinium Brm/Vilanterol Tr [Anoro Ellipta 62.5-25 Mcg Inh] IH SCH (08:13)
[2018-12-28] MEDS: ENOXAPARIN 40 MG/0.4 ML SQ SCH (08:13)
[2018-12-28] MEDS: FOLIC ACID 1 MG TABLET PO SCH ×2 (08:14→22:14)
[2018-12-28] MEDS: ASPIRIN 81 MG CHEWABLE TABLET PO SCH (08:14)
[2018-12-28] MEDS: TRAMADOL HCL 50 MG TAB PO PRN (09:19)
[2018-12-28] MEDS: IBUPROFEN 400 MG TAB PO PRN ×2 (14:43→22:13)
[2018-12-28 17:23] VITALS: O2SAT 96
[2018-12-28] MEDS: Levofloxacin500mg IV 500 MG/100 ML BAG IV SCH (18:06)
[2018-12-28] MEDS ORDERED: ALPRAZOLAM 0.25 MG TABLET PO ONE (21:52)
[2018-12-28] MEDS: DULOXETINE 20 MG CAP PO SCH (22:13)
[2018-12-29] MEDS: TRAMADOL HCL 50 MG TAB PO PRN (00:09)
--- NOTE | 2018-12-29 02:07 | PN ---
Date of Progress Note: 12/28/2018 Subjective: Patient was seen this morning for followup, lying in bed, not in distress. Denies any n ew complaints this morning. Objective: Vital Signs: Reviewed. HEENT: Unremarkable. Lungs: Clear to auscultation. Heart: Sounds normal. Abdomen: Soft. Bowel sounds normal. No guarding, rigidity, tenderness, or distention. Extremities: No leg edema. Laboratory Data: Urine culture growing E coli. Blood culture, gram-negative rods. Definite identif ication and sensitivity result pending. Impression: 1.Sepsis, gram-negative. 2.Urinary tract infection, organism Escherichia coli. 3.Chronic obstructive pulmonary disease. 4.Pulmonary nodule, rule out lung cancer. Plan: We will continue current culture specific antibiotics. Follow up on blood culture results. H opefully, by tomorrow it should be ready and then we will decide about possible discharge with approp riate oral antibiotics. I did inform her about the chest x-ray result. In 2013, she was noted to lorenzo ve pulmonary nodule and she refused any further testing or treatment and she just simply does not wan t to find out if she has any lung cancer and does not want any further testing. She is not compliant even with office followup visits. Today, when I talked to her about chest x-ray as soon as I starte d talking to her, she immediately informed me that she does not want any testing done and I did expla in her about my concern about possibility of neoplasm, but she does not want any further evaluation or treatment for it. I will se e her tomorrow for followup. SAMRA/MODL Voice ID: [id number] Report ID: [id number]
[2018-12-29] MEDS: ASPIRIN 81 MG CHEWABLE TABLET PO SCH (08:14)
[2018-12-29] MEDS: FOLIC ACID 1 MG TABLET PO SCH (08:14)
[2018-12-29] MEDS: Umeclidinium Brm/Vilanterol Tr [Anoro Ellipta 62.5-25 Mcg Inh] IH SCH (08:15)
[2018-12-29] MEDS: HYDROXYCHLOROQUINE 200MG TAB PO SCH (08:15)
[2018-12-29 08:32] VITALS: BP 141/65; TEMP 98.9
[2018-12-29] MEDS: ENOXAPARIN 40 MG/0.4 ML SQ SCH (08:35)
[2018-12-29] MEDS: CEFEPIME/SWI 1gm 10 ML IVP SCH (08:57)
--- NOTE | 2018-12-30 18:04 | DS ---
Date of Discharge: 12/29/2018 . Physical Examination: HEENT: Examination unremarkable. Lungs: Clear to auscultation. Heart: Sounds normal. Abdomen: Soft. Bowel sounds normal. No guarding, rigidity, tenderness, or distention. Extremities: No leg edema. Laboratories And Investigation Done During This Hospitalization: Her urine culture and blood culture collected on 12/25/2018, showed E coli. White count 11.6 on 12/25/2018 with hemoglobin 11.7, and pl atelets 229. Urinalysis was positive for nitrite, esterase, etc. Chest x-ray shows increased densit y in the left lower lobe and presence of pulmonary nodule as noted before with changes of emphysema. Final Diagnoses: 1.Sepsis, organism Escherichia coli. 2.Urinary tract infection, organism Escherichia coli. 3.Anemia, unspecified. 4.Chronic obstructive pulmonary disease. 5.Pulmonary nodule, rule out neoplasm. 6.Rheumatoid arthritis. 7.Osteoarthritis, multiple sites. 8.Gastroesophageal reflux disease. 9.Depression. 10.Hyperlipidemia. Hospital Course: A 73-year-old female patient admitted to the hospital with fever, chills, feeling w eak, and short of breath. Please see dictated H and P for more information. Patient came into emerg ency room with these complaints and she left hospital against medical advice. She was given 1 dose o f IV antibiotic in the emergency room and she was discharged from the emergency room with oral antibi otic Levaquin 500 mg daily and 9 days prescription was given from emergency room. Day after that vis it, I contacted her as her blood culture had started to grow gram-negative rods and patient was advis ed to come back to emergency room and she did and after she was evaluated, decision was made to admit her to hospital with gram-negative sepsis. Hemodynamically, she was stable. IV fluid and IV antibi otic Levaquin and cefepime were started. Urine culture and blood culture results came back growing E coli and organism is sensitive to multiple antibiotics including Levaquin. Patient's chest x-ray do ne in the emergency room shows left upper lobe pulmonary nodule and increased density in the left low er lobe. I did talk to her about this. We need to keep in mind about possibility of pneumonia versu s pulmonary neoplasm like lung cancer. All those details were discussed with her and soon as I start ed talking to her about it, she immediately told me that she does not want any testing done. This is exactly how her response was in 2013 when I approached her and she does not want to find out what it is, understanding that it could be something bad like lung cancer. She does not want any evaluation or treatment. Overall, her condition has improved and she was discharged to go home in stable condi tion today. Her last blood work on 12/27/2018; white count 7.1, hemoglobin 11.1, platelets 206. Sod ium 143, potassium 4.1, chloride 104, bicarb 33, BUN 19, creatinine 0.69, glucose 101. Discharge Medications And Instructions: 1.Continue all prior home medications. 2.Take Levaquin 500 mg 1 tablet p.o. daily for total 14 days and follow up at my office in 1 month. SAMRA/MODL Voice ID: [id number] Report ID: [id number]
== END 2018-12-29 09:46 | disposition home or self-care (01) | DRG 872 ==
LOC: ER 14:43 → ERHOLD 18:05 → 4TH 19:36
PROVIDERS: ADMIT Internal Medicine; ATTEND Internal Medicine
DX: A41.51 Sepsis due to Escherichia coli [E. coli] (principal); N39.0 Urinary tract infection, site not specified; B96.20 Unspecified Escherichia coli [E. coli] as the cause of diseases classified elsewhere; D64.9 Anemia, unspecified; J44.9 Chronic obstructive pulmonary disease, unspecified; R91.1 Solitary pulmonary nodule; M06.9 Rheumatoid arthritis, unspecified; M19.90 Unspecified osteoarthritis, unspecified site; K21.9 Gastro-esophageal reflux disease without esophagitis; F32.9 Major depressive disorder, single episode, unspecified; E78.5 Hyperlipidemia, unspecified
CPT/HCPCS: 36415; 71045; 80048; 80053; 80076; 81003; 81015; 83605; 83690; 83735; 83880; 84484; 85025; 85610; 87040; 87077; 87086; 87088; 87186; 87205; 93005; 94760; 96365; 96374; 96375; 99285; J0456; J0692; J0696; J1650; J2930; J7030; J7512

== ENCOUNTER 2020-01-11 20:42 | Inpatient (IN) | payer OTHER ==
--- OUTSIDE RECORDS SUMMARY | 2020-01-11 20:44 | XMS REPORT ---
:1945 Author Organization eClinicalWorks Care Team Providers Name Role Phone Iveth Cornell Provider Role Unavailable Allergies, Adverse Reactions, Alerts Substance Reaction Event Type N.K.D.A. Info Not Available Non Drug Allergy Problems Problem Type Condition Code Onset Dates Condition Statu s Assessment Incontinence R32 Active Problem Incontinence R32 Active Assessment Yeast infection involving the vagina B37.3 Active and surrounding area Medications Medication Code Code Instructions Start End Status Dosage System Date Date Vitamin D3 [facility] [id number] Active as UNIT/GM oral 1 directed tab weekly Methotrexate ND 65249645110 2.5 MG Orally Active a s directed Anoro Ellipta [facility] 18233889529 62.5mcg/25 mcg Active not Orally defined AcetaZOLAMIDE [facility] 66171759465 250 MG Orally Active 1 tablet Once a day Cymbalta [facility] 21038155531 20 MG Orally Active 1 caps ule Twice a day Enbrel SureClick [facility] 79506025250 50 MG/ML Active 1 ml Subcutaneous Folic Acid [facility] 45602296248 1 MG Orally Active 1 tab let BID Alendronate Sodium [facility] 27342787731 70 MG Orally Acti ve 1 tablet 30 minutes before the first food, beverage or medicine of the day with plain water Diflucan [facility] 88040753296 150 MG Orally Sept Sept Active one t ablet once 15, 18, daily 2019 2019 ProAir HFA [facility] 68557622436 108 (90 Base) Active 1 p uff as MCG/ACT needed Inhalation every 4 hrs Alprazolam ND 03126381474 0.25 MG Orally Active 1 tablet Twice a day Aspirin 81 [facility] 12465151144 81 MG Orally Active 1 ta blet Once a day Vitamin B 12 ND 75373739132 100 MCG Orally Active as directed Hydroxychloroquine ND 21132108693 200 MG Orally Act senait as Sulfate BID directed Results No Known Results Summary Purpose eClinicalWorks Submission
--- OUTSIDE RECORDS SUMMARY | 2020-01-11 20:44 | XMS REPORT | Continuity of Care Document ---
:1945 Author Organization [facility] t Address [address] [place] [address] Care Team Providers Name Role Phone Unavailable Unavailable Unavailable Problems Condition Condition Condition Status Onset Resolution Last Treating Co mments Source Name Details Category Date Date Treatment Clinician Date Incontinen Incontinen Problem Active [facility] Yeast Yeast Diagnosis Active [facility] infection infection [facility] - involving involving Jossue quinton the vagina the vagina l and and Outpati surroundin surroundin en t g area g area Clinics Allergies, Adverse Reactions, Alerts This patient has no known allergies or adverse reactions. Medications Ordered Filled Start Stop Current Ordering Indication Dosage Frequency Signature Comments Components Source Medication Medication Date Date Medication? Clinician (SIG) Name Name Diflucan Diflucan 0 2020- Yes Iveth one tablet [facility] 9-15 09-18 [facility] daily [facility] Anoro Anoro Yes Iveth not [facility] Ellipta Ellipta Aneta defined [facility] AcetaZOLAMI AcetaZOLAMI Yes Iveth [address] [facility] DE DE Purple Sage [facility] Vitamin B Vitamin B Yes Iveth as [facility] 12 12 Aneta directed [facility] Cymbalta Cymbalta Yes Iveth [address] Purple [facility] Alendronate Alendronate Yes Iveth [address] [facility] Sodium Sodium Purple Sage 30 minutes L ukes - before the [facility] first l food, Outpati beverage ent or Clinics medicine of the day with plain water ProAir HFA ProAir HFA Yes Iveth [address] [facility] Purple Sage needed [facility] Vitamin D3 Vitamin D3 Yes Iveth as [facility] Purple Sage [facility] Enbrel Enbrel Yes Iveth [address] [facility] SureClick SureClick Aneta [facility] Aspirin 81 Aspirin 81 Yes Iveth [address] [facility] Aneta [facility] Methotrexat Methotrexat Yes Iveth as [facility] e e Purple Sage directed [facility] Hydroxychlo Hydroxychlo Yes Iveth as [facility] roquine roquine Purple Sage directed [facility] - Sulfate Sulfate [facility] Alprazolam Alprazolam Yes Iveth [address] [facility] An[facility] Folic Acid Folic Acid Yes Iveth [address] [facility] Procedures This patient has no known procedures. Encounters Start End Encounter Admission Attending Care Care Encounter Source Date/Time Date/Time Type Type Clinicians Facility Department ID 2020-01-04 2020-01-04 [facility] [id number] [facility]00 14[facility]00[facility]00 t Specialty/U [facility] l [facility] Outpati ent Clinics 2019-09-30 2019-09-30 [facility] [id number] [facility] 13:30:00 13:30:00 t Specialty/U [facility]Urology [facility] l Clinic Outpati ent Clinics 2019-09-09 2019-09-09 [facility] [id number] [facility] 15:04:00 15:04:00 t Specialty/U [facility] - [facility]Urology Clinic l Clinic Outpati ent Clinics 2019-09-09 2019-09-09 [facility] [id number] [facility] 13:30:00 13:30:00 t Specialty/U [facility]Urology Clinic l Clinic Outpati ent Clinics Results This patient has no known results.
--- NOTE | 2020-01-11 21:22 | RAD REPORT ---
EXAM DESCRIPTION: RAD - Chest Single View - 01/11/2020 9:14 pm CLINICAL HISTORY: CHEST PAIN Chest pain. COMPARISON: Chest Single View dated 12/26/2018; CHEST SINGLE VIEW dated 04/12/2014; CHEST SINGLE VIEW dated 04/10/2014; CHEST SINGLE VIEW dated 01/10/2012; THORAX W CONTRAST dated 04/11/2014 FINDINGS: Portable technique limits examination quality. Diffuse COPD is present. Noncalcified left upper lobe pulmonary nodule is seen, appearing similar to 2014 study. Trace pleural effusions are suspected bilaterally. The heart is mildly enlarged in size. No displaced fractures. IMPRESSION: COPD.
[2020-01-11] MEDS ORDERED: ACETAMINOPHEN 325 MG TABLET ONE (21:35)
[2020-01-11 22:38] LABS: Absolute Lymphocytes (CBC) 0.6 K/uL (0.7-4.9); Basophils % 1.3 % (0-1.3); Hematocrit 32.5 % (36.0-45.0); Lymphocytes % 8.3 % (15.3-44.8); MPV 9.4 fL (7.6-11.3); RBC Red Blood Cell Count 3.66 M/uL (3.86-4.86)
[2020-01-11] MEDS ORDERED: LEVETIRACETAM 500 MG/5 ML VIAL IV ONE (22:44)
[2020-01-11 22:47] LABS: Protime INR 0.99
[2020-01-11] MEDS ORDERED: dexAMETHasone 10 MG/ML VIAL ONE (22:47)
[2020-01-11] MEDS ORDERED: FENTANYL CITR 100 MCG/2 ML ONE ×2 (22:47→23:29)
[2020-01-11] MEDS ORDERED: NA CHLORIDE 0.9% 100 ML IV ONE (22:51)
[2020-01-11 22:54] LABS: ALT/SGPT 12 U/L (12-78); AST/SGOT 14 U/L (15-37); Albumin 3.1 g/dL (3.4-5.0); Alkaline Phosphatase 50 U/L (45-117); BUN Blood Urea Nitrogen 10 mg/dL (7-18); Bicarbonate 37 mmol/L (21-32); Bilirubin Direct 0.1 mg/dL (0-0.2); Bilirubin Total 0.6 mg/dL (0.2-1.0); Glucose Level 103 mg/dL (74-106); Magnesium 2.1 mg/dL (1.8-2.4); NT PRO-BNP 45 pg/mL (<125); Potassium 4.3 mmol/L (3.5-5.1); Protein, Total 6.7 g/dL (6.4-8.2); Sodium Level 138 mmol/L (136-145); Troponin (Emerg Dept Use Only) < 0.02 ng/mL (0.0-0.045)
[2020-01-11] MEDS ORDERED: ONDANSETRON 4 MG/2 ML VIAL ONE (22:57)
--- NOTE | 2020-01-11 23:49 | ER ---
Nurse's Notes [facility] Name: Bre Rodriguez Age: 74 yrs Sex: Female : 1945 Arrival Date: 01/11/2020 Time: 20:44 Bed 20 Private MD: Del Ochoa Diagnosis: Weakness;Malignant neoplasm of frontal lobe-right Presentation: 01/10 20:44 Chief complaint: Patient states: Tanna had N/V/D for several days now, worsening today. sg pt reports feeling more weak than usual this morning, pt family was able to get pt into POV and dropped off for triage. Coronavirus screen: Client denies travel out of the [place] in the last 14 days. diarrhea, nausea, runny nose, vomiting. Client presents with at least one sign or symptom that may indicate coronavirus-19. Standard/surgical mask placed on the client. Ebola Screen: Patient negative for fever greater than or equal to 101.5 degrees Fahrenheit, and additional compatible Ebola Virus Disease symptoms Patient denies exposure to infectious person. Patient denies travel to an Ebola-affected area in the 21 days before illness onset. No symptoms or risks identified at this time. Initial Sepsis Screen: Does the patient meet any 2 criteria? RR > 20 per min. Does the patient have a suspected source of infection? No. Patient's initial sepsis screen is negative. Risk Assessment: Do you want to hurt yourself or someone else? Patient reports no desire to harm self or others. Onset of symptoms was January 11, 2020. Care prior to arrival: None. Activity prior to arrival: vomiting. Transition of care: patient was not received from another setting of care. 20:44 Method Of Arrival: Wheelchair sg 20:44 Acuity: NELA 3 sg Historical: - Allergies: 20:46 No Known Allergies; sg - PMHx: 20:46 COPD; Home O2 via NC; RA; sg - Immunization history:: Adult Immunizations up to date. - Social history:: Smoking status: Patient reports the use of cigarette tobacco products. Screenin:14 Abuse screen: Denies threats or abuse. Nutritional screening: No deficits noted. ll2 Tuberculosis screening: No symptoms or risk factors identified. Fall Risk IV access (20 points). Ambulatory Aid- Crutches/Cane/Walker (15 pts). Gait- Weak (10 pts.). Mental Status- Oriented to own ability (0 pts). Total Santana Fall Scale indicates High Risk Score (45 or more points). Assessment: 22:10 General: Appears in no apparent distress. Behavior is calm, cooperative, appropriate ll2 for age. General: pt states she has been feeling very weak lately and now has lost control of her LT arm. . Pain:. Neuro: Level of Consciousness is awake, alert, obeys commands, Oriented to person, place, time, situation. Cardiovascular: Capillary refill < 3 seconds Patient's skin is warm and dry. Respiratory: Airway is patent Respiratory effort is even, unlabored, Respiratory pattern is regular, symmetrical. : Reports unable to get out of the bed to use the bathroom. EENT: No signs and/or symptoms were reported regarding the EENT system. Derm: Skin is intact, is fragile, Skin is dry, Skin is pink, warm \T\ dry. Skin temperature is warm. Musculoskeletal: Circulation, motion, and sensation intact. Range of motion: limited in left shoulder and left elbow. 01/11 00:00 Reassessment: Patient appears in no apparent distress at this time. Patient and/or wh family updated on plan of care and expected duration. Pain level reassessed. Patient is alert, oriented x 3, equal unlabored respirations, skin warm/dry/pink. 01:45 Reassessment: Patient appears in no apparent distress at this time. Patient and/or wh family updated on plan of care and expected duration. Pain level reassessed. Patient is alert, oriented x 3, equal unlabored respirations, skin warm/dry/pink. Vital Signs: 01/10 20:47 BP 132 / 71 RA Supine (auto/reg); Pulse 92 MON; Resp 22 S; Temp 98.5(O); Pulse Ox 100% ds4 on NC; Weight 66.22 kg (R); Height 5 ft. 3 in. (160.02 cm); 21:50 BP 127 / 72; Pulse 93; Resp 16; Pulse Ox 100% on 4 lpm NC; ll2 23:00 BP 129 / 69; Pulse 81; Resp 16; Pulse Ox 100% on 4 lpm NC; ll2 01/11 00:03 BP 135 / 67; Pulse 94; Resp 15; Pulse Ox 100% on 4 lpm NC; ll2 01:00 BP 134 / 70; Pulse 95; Resp 18; Pulse Ox 99% on 4 lpm NC; 02:23 BP 125 / 71; Pulse 96; Resp 18; Pulse Ox 97% on 4 lpm NC; 01/10 20:47 Body Mass Index 25.86 (66.22 kg, 160.02 cm) ds4 ED Course: 01/10 20:44 Patient arrived in ED. sg 20:44 Del Ochoa MD is Private Physician. sg 20:44 Arm band placed on. sg 20:45 Hector Parrish PA is PHCP. cp 20:45 Hector Rocha MD is Attending Physician. cp 20:46 Triage completed. sg 20:57 Korina Silverman, LA is Primary Nurse. ll2 21:14 XRAY Chest (1 view) In Process Unspecified. EDMS 21:38 CT Head Brain wo Cont In Process Unspecified. EDMS 22:15 Patient has correct armband on for positive identification. Placed in gown. Bed in low ll2 position. Call light in reach. Side rails up X2. sanitation truck cleaner on. Pulse ox on. NIBP on. Warm blanket given. 22:15 Initial lab(s) drawn, by me, sent to lab. Inserted saline lock: 20 gauge in left ll2 antecubital area, using aseptic technique. Blood collected. 23:30 No provider procedures requiring assistance completed. ll2 23:46 Del Ochoa MD is Hospitalizing Provider. 01/11 00:01 Gupta cath inserted, using sterile technique, 16 Fr., by nc, balloon inflated, to ll2 gravity drainage. 02:22 Patient admitted, IV remains in place. Administered Medications: 01/10 21:50 Drug: Tylenol 650 mg Route: PO; ll2 22:18 Follow up: Response: No adverse reaction ll2 22:27 Follow up: Response: No adverse reaction ll2 23:30 Drug: Keppra 1000 mg Route: IV; Rate: calculated rate; Site: right antecubital; ll2 23:31 Follow up: Response: No adverse reaction; IV Status: Completed infusion ll2 23:30 Drug: Decadron - Dexamethasone 10 mg Route: IVP; Site: right antecubital; ll2 23:31 Follow up: Response: No adverse reaction ll2 23:30 Drug: Zofran (Ondansetron) 4 mg Route: IVP; Site: right antecubital; ll2 23:31 Follow up: Response: No adverse reaction [facility] 01/11 00:02 Drug: fentaNYL (PF) 25 mcg Route: IVP; Site: right antecubital; ll2 00:11 Follow up: Response: No adverse reaction; RASS: Alert and Calm (0) 2 02:24 Follow up: Response: No adverse reaction; Pain is decreased; RASS: Alert and Calm (0) 00:02 Drug: fentaNYL (PF) 25 mcg Route: IVP; Site: right antecubital; ll2 00:11 Follow up: Response: No adverse reaction; RASS: Alert and Calm (0) 2 02:24 Follow up: Response: No adverse reaction; Pain is decreased; RASS: Alert and Calm (0) Outcome: 01/10 23:48 Decision to Hospitalize by Provider. 01/11 02:22 Admitted to Tele accompanied by tech, via stretcher, room 431, with chart, Report called to Deanna Carr RN Condition: stable Instructed on the need for admit. 02:51 Patient left the ED. Signatures: Dispatcher [employer] EDAniket Read, RN RN Davin Lynne ds4 Hector Parrish PA PA Burton Hunter Korina Silverman, RN RN ll2
--- NOTE | 2020-01-11 23:50 | EDPHYS ---
Physician Documentation [facility] Name: Bre Rodriguez Age: 74 yrs Sex: Female : 1945 Arrival Date: 01/11/2020 Time: 20:44 Bed 20 Private MD: Del Ochoa ED Physician Hector Rocha HPI: 01/10 21:05 This 74 yrs old Female presents to ER via Wheelchair with complaints of cp Nausea/Vomiting/Diarrhea. 21:05 The patient presents to the emergency department with nausea, that is mild, vomiting, cp that is intermittent. 21:05 Onset: The symptoms/episode began/occurred gradually, and became worse today. Possible cp causes: unknown. Associated signs and symptoms: Pertinent positives: headache, general weakness. 21:05 Severity of symptoms: in the emergency department the symptoms are unchanged despite cp home interventions. Historical: - Allergies: 20:46 No Known Allergies; sg - PMHx: 20:46 COPD; Home O2 via NC; RA; sg - Immunization history:: Adult Immunizations up to date. - Social history:: Smoking status: Patient reports the use of cigarette tobacco products. ROS: 21:10 Constitutional: Negative for body aches, chills, fever. cp 21:10 Eyes: Negative for injury, pain, redness, and discharge. cp 21:10 ENT: Negative for ear pain, sore throat, difficulty swallowing, difficulty handling secretions. 21:10 Cardiovascular: Negative for chest pain, edema. 21:10 Respiratory: Positive for shortness of breath, Negative for cough, wheezing. 21:10 Abdomen/GI: Negative for abdominal pain. 21:10 Neuro: Positive for headache, weakness, Negative for altered mental status, syncope. 21:10 All other systems are negative. Exam: 21:15 Constitutional: The patient appears in no acute distress, alert, awake, cp non-diaphoretic, non-toxic, well developed, well nourished. 21:15 Head/Face: Normocephalic, atraumatic. cp 21:15 Eyes: Periorbital structures: appear normal, Pupils: equal, round, and reactive to light and accomodation, Extraocular movements: intact throughout, Conjunctiva: normal, no exudate, no injection, Sclera: no appreciated abnormality, Lids and lashes: appear normal, bilaterally. 21:15 ENT: External ear(s): are unremarkable, Nose: is normal, Mouth: Lips: moist, Oral mucosa: moist, Posterior pharynx: Airway: no evidence of obstruction, patent. 21:15 Chest/axilla: Inspection: normal, Palpation: is normal, no crepitus, no tenderness. 21:15 Cardiovascular: Rate: normal, Rhythm: regular, Edema: is not appreciated, JVD: is not appreciated. 21:15 Respiratory: the patient does not display signs of respiratory distress, Respirations: labored breathing, is not present, intercostal retractions, are absent, shallow respirations, are not present, Breath sounds: are clear throughout, no stridor, no wheezing. 21:15 Abdomen/GI: Inspection: abdomen appears normal, Palpation: abdomen is soft and non-tender, in all quadrants. 21:15 Neuro: Orientation: to person, place \T\ time. Mentation: is normal, Motor: moves all fours, general weakness w/o focal deficits, Sensation: no obvious gross deficits. 21:59 ECG was reviewed by the Attending Physician. cp Vital Signs: 20:47 BP 132 / 71 RA Supine (auto/reg); Pulse 92 MON; Resp 22 S; Temp 98.5(O); Pulse Ox 100% ds4 on NC; Weight 66.22 kg (R); Height 5 ft. 3 in. (160.02 cm); 21:50 BP 127 / 72; Pulse 93; Resp 16; Pulse Ox 100% on 4 lpm NC; ll2 23:00 BP 129 / 69; Pulse 81; Resp 16; Pulse Ox 100% on 4 lpm NC; ll2 01/11 00:03 BP 135 / 67; Pulse 94; Resp 15; Pulse Ox 100% on 4 lpm NC; ll2 01:00 BP 134 / 70; Pulse 95; Resp 18; Pulse Ox 99% on 4 lpm NC; wh 02:23 BP 125 / 71; Pulse 96; Resp 18; Pulse Ox 97% on 4 lpm NC; wh 01/10 20:47 Body Mass Index 25.86 (66.22 kg, 160.02 cm) ds4 MDM: 01/10 20:50 Patient medically screened. cp 21:15 Differential diagnosis: dehydration, CVA, cardiac arrythmia, electrolyte abnormality, cp acute SD. 23:15 Data reviewed: vital signs, nurses notes, lab test result(s), EKG, radiologic studies, cp CT scan, plain films. 23:15 Test interpretation: by ED physician or midlevel provider: ECG, chest xray negative for cp infiltrates. Counseling: I had a detailed discussion with the patient and/or guardian regarding: the historical points, exam findings, and any diagnostic results supporting the discharge/admit diagnosis, lab results, radiology results. Response to treatment: the patient's symptoms have mildly improved after treatment. 23:45 ED course: VSS. Discussed results of labs and radiology studies with patient and cp family. Patient refuses transfer for neurosurgery consult and along with family request admittance to DR Ochoa for pain control and to discuss palliative care. Patient and family request patient to be DNR at this time. 23:45 Physician consultation: Del Ochoa MD was called at 23:40, was contacted at 23:40, cp regarding admission, to the telemetry unit. patient's condition, will consult neurology with admission. 01/10 21:02 Order name: Basic Metabolic Panel; Complete Time: 23:09 cp 01/10 23:09 Interpretation: Normal except: CO2 37; CRE 0.47. cp 01/10 21:02 Order name: CBC with Diff; Complete Time: 22:41 cp 01/10 22:41 Interpretation: Normal except: RBC 3.66; HGB 10.9; HCT 32.5; SHAHLA% 76.9; LYM% 8.3; LYMA cp 0.6. 01/10 21:02 Order name: LFT's; Complete Time: 23:09 cp 22 23:09 Interpretation: Normal except: AST 14; ALB 3.1; GLOB 3.6; A/G 0.9. cp 01/10 21:02 Order name: Magnesium; Complete Time: 23:09 cp 01/10 21:02 Order name: NT PRO-BNP; Complete Time: 23:09 cp / 21:02 Order name: PT-INR; Complete Time: 23:09 cp / 21:02 Order name: Troponin (emerg Dept Use Only); Complete Time: 23:09 cp 01/10 23:10 Interpretation: Reviewed. cp 01/10 21:02 Order name: XRAY Chest (1 view); Complete Time: :45 cp 01/10 21:45 Interpretation: Report reviewed. 01/10 21:02 Order name: Urine Microscopic Only 01/10 21:02 Order name: Procalcitonin 01/10 23:58 Order name: Basic Metabolic Panel EDAL 01/10 23:58 Order name: Basic Metabolic Panel EDAL 01/10 23:58 Order name: CBC with Automated Diff EDMS 01/10 23:58 Order name: CBC with Automated Diff EDMS 01/10 21:02 Order name: EKG; Complete Time: 21:03 01/10 21:02 Order name: Cardiac monitoring; Complete Time: 22:00 01/10 21:02 Order name: EKG - Nurse/Tech; Complete Time: 22:00 01/10 21:02 Order name: IV Saline Lock; Complete Time: 22:33 cp 01/10 21:02 Order name: Labs collected and sent; Complete Time: 22:33 cp 01/10 21:02 Order name: O2 Per Protocol; Complete Time: 21:51 01/10 21:02 Order name: O2 Sat Monitoring; Complete Time: 21:51 01/10 21:07 Order name: CT Head Brain wo Cont 01/10 23:55 Order name: CONS Physician Consult EDAL 01/10 23:58 Order name: Regular EDAL 01/10 21:02 Order name: Urine Dipstick-Ancillary (obtain specimen); Complete Time: 00:31 01/10 23:09 Order name: Alonso; Complete Time: 23:59 cp EC:59 Rate is 87 beats/min. Rhythm is regular. VA interval is normal. QRS interval is normal. cp QT interval is normal. T waves are Inverted in lead aVR. Interpreted by me. Reviewed by me. Administered Medications: 21:50 Drug: Tylenol 650 mg Route: PO; ll2 22:18 Follow up: Response: No adverse reaction ll2 22:27 Follow up: Response: No adverse reaction ll2 23:30 Drug: Keppra 1000 mg Route: IV; Rate: calculated rate; Site: right antecubital; ll2 23:31 Follow up: Response: No adverse reaction; IV Status: Completed infusion ll2 23:30 Drug: Decadron - Dexamethasone 10 mg Route: IVP; Site: right antecubital; ll2 23:31 Follow up: Response: No adverse reaction ll2 23:30 Drug: Zofran (Ondansetron) 4 mg Route: IVP; Site: right antecubital; ll2 23:31 Follow up: Response: No adverse reaction [facility] 01/11 00:02 Drug: fentaNYL (PF) 25 mcg Route: IVP; Site: right antecubital; ll2 00:11 Follow up: Response: No adverse reaction; RASS: Alert and Calm (0) ll2 02:24 Follow up: Response: No adverse reaction; Pain is decreased; RASS: Alert and Calm (0) 00:02 Drug: fentaNYL (PF) 25 mcg Route: IVP; Site: right antecubital; ll2 00:11 Follow up: Response: No adverse reaction; RASS: Alert and Calm (0) ll2 02:24 Follow up: Response: No adverse reaction; Pain is decreased; RASS: Alert and Calm (0) Disposition: 11:08 Co-signature as Attending Physician, Hector Rocha MD I agree with the assessment and maverick plan of care. Disposition: 01/11/20 23:48 Hospitalization ordered by Del Ochoa for Inpatient Admission. Preliminary diagnosis are Weakness, Malignant neoplasm of frontal lobe - right. - Bed requested for Telemetry/MedSurg (observation). - Status is Inpatient Admission. - Condition is Fair. - Problem is new. - Symptoms are unchanged. Signatures: Dispatcher [employer] EDMS Aniket Mccann, RN Hector Gray MD MD cha Page, Corey, PA PA Mei Fitzpatrick RN RN Burton Hunter Korina Silverman, RN RN ll2 Corrections: (The following items were deleted from the chart) 00:01/10 23:48 Hospitalization Ordered by Del Ochoa MD for Inpatient Admission. Preliminary diagnosis is Weakness; Malignant neoplasm of frontal lobe - right. Bed requested for Telemetry/MedSurg (observation). Status is Inpatient Admission. Condition is Fair. Problem is new. Symptoms are unchanged. 01/11 02:51 00:01/11/2020 23:48 Hospitalization Ordered by Del Ochoa MD for Inpatient Admission. Preliminary diagnosis is Weakness; Malignant neoplasm of frontal lobe - right. Bed requested for Telemetry/MedSurg (observation). Status is Inpatient Admission. Condition is Fair. Problem is new. Symptoms are unchanged.
[2020-01-11] MEDS ORDERED: ACETAMINOPHEN 500 MG TAB PO PRN (23:56)
[2020-01-12] MEDS: NA CHLORIDE 0.9% 1,000 ML IV SCH ×2 (03:52→15:33)
[2020-01-12] MEDS: MORPHINE 2 MG/ML SYR IV PRN ×3 (03:59→20:45)
[2020-01-12 05:05] VITALS: BMI 25.8
[2020-01-12 05:11] LABS: Absolute Lymphocytes (CBC) 0.3 K/uL (0.7-4.9); Basophils % 0.6 % (0-1.3); Hematocrit 33.9 % (36.0-45.0); Lymphocytes % 5.4 % (15.3-44.8); MPV 8.5 fL (7.6-11.3); RBC Red Blood Cell Count 3.83 M/uL (3.86-4.86)
[2020-01-12 05:25] LABS: BUN Blood Urea Nitrogen 10 mg/dL (7-18); Bicarbonate 36 mmol/L (21-32); Glucose Level 146 mg/dL (74-106); Potassium 4.4 mmol/L (3.5-5.1); Sodium Level 139 mmol/L (136-145)
[2020-01-12 07:57] LABS: Basophilic Stippling 1+; Blood Morphology Comment NOT SEEN (NOT SEEN); Platelet Estimate ADEQ; White Blood Cell Scan OK (OK)
[2020-01-12] MEDS: ALBUTEROL 2.5 MG/3 ML NEB SOL NEB SCH ×3 (08:30→20:55)
[2020-01-12] MEDS: IPRATROPIUM BROM 0.5MG/2.5ML NEB SCH ×3 (08:30→20:55)
[2020-01-12] MEDS: levETIRAcetam 500 MG TAB PO SCH ×2 (08:54→20:50)
--- NOTE | 2020-01-12 09:40 | RAD REPORT ---
EXAM DESCRIPTION: CT - Head Brain Wo Cont - 01/12/2020 7:01 am ADDENDUM #1 Findings were discussed with physician Asst. Khalif De La Paz 01/11/2020 2201 hours. Electronically signed by: Dinorah Hardy MD 01/11/2020 10:26 PM CDT End of Addendum EXAM: Head Brain Wo Cont CLINICAL HISTORY: 74-year-old female with nausea, vomiting and diarrhea for several days, worsening with general weakness. COMPARISON: None. TECHNIQUE: CT brain without contrast. This exam was performed according to our departmental dose opt imization program which includes use of automated exposure control, adjustment of the mA and/or kV ac cording to patient size and/or use of iterative reconstruction technique. FINDINGS: At the level of the RIGHT frontal lobe is a slightly higher than cortical density mass gay suring 2.7 x 2.3 x 2.5 cm, (series 201, image 24 and series 203, image 37). Slight peripheral high de nsity may reflect calcification versus petechial hemorrhage. There is associated extensive perilesional decreased attenuation compatible with vasogenic edema with local regional mass effect without midline shift. There is minimal mass effect on the frontal horn o f the RIGHT lateral ventricle. Overall findings are concerning for primary or secondary neoplasm. MRI of the brain pre and post intr avenous contrast is recommended. Additional focal area of hypoattenuation is identified within the deep white matter of the RIGHT fron wendy lobe adjacent to the splenium of the corpus callosum and RIGHT occipital horn medially, (series 2 01, image 18) raising the concern for a secondary or satellite focus of neoplasm. Trace chronic appearing subdural hematoma may be present subjacent to the lesion measuring 4 mm in th ickness, (series 202, image 35). Multifocal regions of patchy hypoattenuation are present in a subcortical and periventricular deep wh ite matter distribution, nonspecific; however, most likely represent small vessel ischemic disease, a ge indeterminate. The ventricles, and sulci are mildly prominent suggesting mild underlying volume loss. The howard-whi te matter differentiation is preserved. The osseous structures are unremarkable. The paranasal si nuses and mastoid air cells are clear. IMPRESSION: 1. Primary or secondary neoplasm present at the level of the RIGHT frontal lobe with dif ferential and details as above. Follow-up evaluation MRI pre and post intravenous administration of c ontrast is recommended. 2. Trace chronic appearing subdural hematoma may be present subjacent to the lesion measuring 4 mm in thickness. Electronically signed by: Dinorah Hardy MD 01/11/2020 9:54 PM CDT Due to temporary technical issues with the PACS/Fluency reporting system, reports are being signed by the in house radiologist without review as a courtesy to ensure prompt reporting. The interpreting r adiologist is fully responsible for the content of the report.
--- NOTE | 2020-01-12 12:02 | EKG ---
Test Date: 2020-01-11 Test Time: 21:55:00 Store Administrator: LARRY MEASUREMENT RESULTS: Intervals: Rate: 87 IA: 134 QRSD: 82 QT: 354 QTc: 425 Bertrand: P: 81 IA: 134 QRS: 84 T: 72 INTERPRETIVE STATEMENTS: Normal sinus rhythm Normal ECG Compared to ECG 12/25/2018 15:39:10 Right-axis deviation no longer present T-wave abnormality no longer present Prolonged QT interval no longer present Electronically Signed On 01-12-20 12:01:23 CDT by Jeremy Jean Baptiste
[2020-01-12] MEDS: ONDANSETRON 4 MG/2 ML VIAL IV PRN (20:46)
[2020-01-12] MEDS ORDERED: ALPRAZOLAM 0.25 MG TABLET PO PRN (21:31)
[2020-01-12] MEDS ORDERED: DULOXETINE 20 MG CAP PO SCH (22:00)
--- NOTE | 2020-01-12 22:04 | HP ---
Date of Admission: 01/12/2020 Chief Complaint: Weakness of the left arm. History Of Present Illness: This is a 74-year-old female patient who started to notice some weakness of the left upper extremity and also some trouble walking for the last 2-3 days. Yesterday evening, the patient's son contacted me and informed me about this problems and he brought her to our emergency room in a private vehicle. After the patient was evaluated in the emergency room, the patient was admitted to the hospital with abnormal CAT scan showing a brain tumor involving right frontal lobe. The patient denies any headache. She started to have nausea, vomiting after she came to emergency room, but prior to that she did not have any such problem. The patient has severe COPD. She is oxygen dependent and she also has a left lung mass, which is a known problem for the last few years and the patient has elected not to pursue any further diagnostic test for that, no biopsy, and obviously no treatment even with understanding that this could be very well lung cancer. Recently about less than a month ago or so, she was admitted with sepsis secondary to urinary tract infection in [facility] and CAT scan of the abdomen was done in [facility] which showed 2 different pulmonary nodules in the left lower lobe region and this is different than her previous chest x-ray which had shown left upper lobe lung mass, so these 2 left lower lobe lung nodules were thought to be metastatic in etiology. When I talked to the patient after she came home from the hospital, once again as she elected not to pursue any further intervention for that with the understanding that this is likely due to lung cancer. After she came to the emergency room yesterday, CAT scan of the head was done which had shown a large right frontal lobe mass and we are not sure whether this is primary brain cancer or it is metastatic brain cancer. IV steroid was started and the patient was admitted to the hospital. When I saw her this morning, she was stable. Allergies: NO KNOWN ALLERGIES. Chief Medications: List reviewed. 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 Psychiatry: Anxiety problem Respiratory: Chronic cough with shortness of breath with any activity. All other systems reviewed and negative. Past Medical History: Significant for osteoarthritis at multiple sites, rheumatoid arthritis, COPD, gastroesophageal reflux disease, depression, anxiety, hyperlipidemia, lung mass. Past Surgical History: Unremarkable. Family History: Father had stroke. Mother had dementia. Brother, diabetes. Another brother with heart disease. Father also had heart disease and diabetes. Social History: Positive for smoking. Use of alcohol negative. Physical Examination: Vital Signs: Temperature 98.9, pulse 96, respiratory rate 18, blood pressure 121/66, height 5 feet 3 inches, weight 145 pounds. General: Awake, alert, oriented, not in distress. HEENT: Head atraumatic, normocephalic. Conjunctivae nonerythematous. Sclerae white. Mouth, no thrush or edema noted. Ears/Nose, no mass, lesion, discharge noted. Neck: Supple. No JVD, lymph nodes, bruit, thyromegaly noted. Lungs: Bilateral good equal air entry. Clear to auscultation. No rhonchi. No rales. Heart: Normal heart sounds, no murmur or gallop. Abdomen: Soft, bowel sounds normal. No guarding, rigidity, tenderness, mass, hepatosplenomegaly, distention, or bruit noted. Extremities: No leg edema. No calf tenderness. Skin: No rash, ulcer, cellulitis. Lymphatics: No lymph node enlargement in neck, supraclavicular, infraclavicular region. Neuro: No focal neurological deficit. Chest: Unremarkable. External Genitalia: Deferred. Rectal: Deferred. STRAP CUTTING MACHINE OPERATOR: Power in the left upper extremity is grade 3/5 and power in the left lower extremity is grade 4/5. Laboratory Data: Yesterday white count 6.7, hemoglobin 10.9, platelets 342. This morning white count 6, hemoglobin 11.5, platelets 320. Yesterday sodium 138, potassium 4.3, chloride 98, bicarb 37, BUN 10, creatinine 0.47, glucose 103. Liver function tests unremarkable. Troponin less than 0.02. Procalcitonin less than 0.05. This morning sodium 139, potassium 4.4, chloride 100, bicarb 36, BUN 10, creatinine 0.47, glucose 146. Impression: 1. Brain tumor. 2. Lung mass. 3. Chronic obstructive pulmonary disease. 4. Rheumatoid arthritis. 5. Osteoarthritis, multiple sites. 6. Gastroesophageal reflux disease. 7. Depression. 8. Anxiety. 9. Hyperlipidemia. Plan: Admit the patient to the hospital for further evaluation and management of this problem. The patient is appropriate for inpatient and is expected to spend 2 midnights in the hospital. Continue home medications per order, give oxygen nebulizer treatment per order. We will go ahead and continue IV steroid which was started in the emergency room. Neurology consultation was requested from Dr. Church. I did talk to the patient in detail this morning. She is aware of the CAT scan of the head results with our concerns about brain tumor which could be likely either primary brain cancer or metastatic cancer due to underlying lung mass which is likely to be lung cancer. After this morning if she is interested in pursuing further diagnostic testing and treatment, and she informed me that she does not want any treatment for this and in that case, I recommended for her to go home with the hospice care, which she was agreeable to do so. We also talked about advanced directives, and in the event of cardiopulmonary arrest, she does not want any heroic measures like CPR, defibrillation, or ventilator support, and we will write DNR order. As per the patient's request, I did call the patient's and talked to him this evening and also talked to the patient's son this evening and they both had discussion with the patient as well during the course of day today, and the patient informed family members that she does not want any kind of treatment for this problem with her brain cancer. In that case, family is agreeable with the patient's decision to take her home and we will arrange for hospice care. We will request Social Service to assist with this. Tomorrow morning, the patient's and son will come and meet me in the patient's room and we will communicate with family tomorrow and assist with any discharge needs. Overall, prognosis is poor. Life expectancy is less than 6 months and hospice diagnosis will be brain cancer. SAMRA/MODL Voice ID: [id number] MTDD
--- NOTE | 2020-01-12 22:50 | CON ---
Reason For Consultation: Consultation called because of brain tumor. History Of Present Illness: Ms. Rodriguez is a 74-year-old right-handed patient who was diag nosed with breast cancer on 14, not clear what treatment she received. However, there was a [facility] visit in 2019, December 29, where chest imaging revealed a chest mass, which was felt to be cancer, but the patient did not want a workup. She now comes in with perhaps a few weeks at [facility] 14 days of progressive headaches with nausea and vomiting, loss of balance and more left upper an d lower extremity weakness than right-sided weakness, but diffuse weakness. At [facility], her brain CT scan on 01/10 identified a 2.7 x 2.3 x 2.5 cortical mass with high density revealing son cification versus petechial hemorrhage. It was felt to be either a secondary or primary neoplasm in the right frontal lobe. She has received so far Keppra for seizure prophylaxis. She is on Decadron, also Zofran for nausea along with morphine for pain. The patient's son and were in the room and I had a discussion indicating that the patient did not want aggressive workup, which is what she had already discussed within the past, including the p ossibility of brain surgery or biopsy and even possibly lung evaluation with bronchoscopy for identif ication actually of a primary type of tumor and the family is actually considering hospice care. Past Medical History: COPD requiring home oxygen, rheumatoid arthritis. Family History: Noncontributory. Allergies: NO KNOWN DRUG ALLERGIES. Medications: Currently, Keppra 500 mg twice daily, Zofran 4 mg every 4 hours as needed, morphine 2 g IV every 4 hours as needed, and normal saline 75 cc an hour. Review of Systems: The patient has had cough, shortness of breath related to her COPD, generalized fatigue, however, she has a worsening left-sided weakness as indicated. Physical Examination: Vital Signs: Blood pressure 118/60, pulse 94, respiratory rate 16, temperature 98.9, oxygen saturati on 98%. She is 145 pounds, 5 feet 2 inches, BMI 25. General: Ms. Rodriguez is resting in bed. At the moment was somewhat sleepy, but easily aroused. She is slumped somewhat to the left with a left arm dangling off the side of the bed. HEENT: She is normocephalic, atraumatic. Sclerae anicteric. Oropharynx is moist. Neck: Supple. Chest: Shows decreased breath sounds with rhonchi. Abdomen: Soft. Extremities: Show no significant edema. No cyanosis or clubbing. Neurologically: She is alert and oriented to person, place. She does follows commands without diffi culty, but needs some encouragement to stay awake. Cranial nerves show no focal deficits. In terms of her upper extremities, she does have 4/5 strength in the left compared to the right side and the l ower extremity is difficult to assess. She did move the right more than left. Sensation appears int act bilaterally for the patient. Coordination intact. Her gait will be assessed with physical thera py. Laboratory Studies: Complete blood count with differential shows white blood cell count of 6.0, hemo globin 11.5, platelets 320. INR 0.99. Chemistries unremarkable except slightly elevated carbon diox dominik of 36, creatinine 0.47, glucose up to 146, calcium 9.7. Procalcitonin less than 0.05. Liver fun ction studies unremarkable. Urinalysis not remarkable. Chest x-ray shows a COPD and electrocardiogr am shows normal sinus rhythm, normal study. Assessment: Ms. Rodriguez is a 74-year-old patient with a left frontal tumor, possibly related to [facility] breast or lung cancer, even perhaps primary brain tumor. The patient and family did not want aggr essive workup done and they are working on opting for hospice care. She may benefit from palliative treatment. Plan: 1.Continue Keppra. 2.Social work may help facilitate hospice care at home if possible. 3.Zofran 4 mg every 4 hours as needed. 4.She may require something to help with sleep. 5.GI, bowel movements as appropriate. The patient may be discharge once appropriately evaluated by Dr. Ochoa. JOVANNA/GRIFFIN Voice ID: [id number] Report ID: [id number]
[2020-01-12] MEDS ORDERED: DULOXETINE 30 MG CAP PO SCH (23:00)
[2020-01-13] MEDS: MORPHINE 2 MG/ML SYR IV PRN ×3 (00:58→12:24)
[2020-01-13] MEDS: IPRATROPIUM BROM 0.5MG/2.5ML NEB SCH ×3 (02:00→13:25)
[2020-01-13] MEDS: ALBUTEROL 2.5 MG/3 ML NEB SOL NEB SCH ×3 (02:00→13:25)
[2020-01-13] MEDS: levETIRAcetam 500 MG TAB PO SCH (09:05)
[2020-01-13 09:44] VITALS: O2SAT 99
[2020-01-13] MEDS: ONDANSETRON 4 MG/2 ML VIAL IV PRN (12:24)
[2020-01-13 14:59] VITALS: BP 116/55; TEMP 98.5
--- NOTE | 2020-01-13 21:39 | DS ---
Date of Discharge: 01/13/2020 Subjective: The patient was seen this morning for followup. She was sitting at bedside. Denies any new complaints except was complaining of back pain. Objective: Vital Signs: Reviewed. HEENT: Examination unremarkable. Lungs: Clear to auscultation. Heart: Sounds normal. Abdomen: Soft. Bowel sounds normal. No guarding, rigidity, tenderness, or distention. Extremities: No leg edema. Discharge Medications And Instructions: Continue all prior home medications. The patient to be admitted to hospice care using [facility] hospice agency and a hospice medical laboratory specialist to take over care. Hospital Course: This is a 74-year-old pleasant female patient, admitted to the hospital with weakness of the left arm. Please see dictated H and P for more information. After the patient came into the emergency room, she was evaluated. Routine blood work was done which was unremarkable. CAT scan of the head showed a large area of right frontal lobe mass. This raises possibility of either primary malignancy of brain or metastatic lesion from lung. The patient has a history of left lung mass, for which she has refused any further evaluation or treatment with the understanding that, that is likely underlying lung cancer, and we believe that this brain mass that now we see could be very well due to metastatic disease from primary lung cancer. Neurology consultation was requested from Dr. Church. Detail discussion regarding these abnormal findings was undertaken with the patient as well as the patient's and son this morning. The patient has elected not to undergo any further evaluation or any treatment like surgery, chemotherapy, or radiation, and with that we recommended hospice care, and the patient and family were agreeable to do so. Social Service was consulted. As of yesterday, the patient's son already started talking to [facility] hospice agency, so this morning after he informed me about it, Social Service was consulted to make arrangements for [facility] to provide care upon discharge. Hospice diagnosis will be lung cancer with metastatic disease to brain. Overall prognosis is poor. Advance directive is do not resuscitate and life expectancy is less than 6 months. All these details were discussed with the patient's family member this morning and questions were answered. The patient had a Gupta catheter which was placed in the emergency room, and when we wanted to remove this catheter this morning, she refused and she wanted to go home with the catheter, and she will allow hospice nurse to remove the catheter tomorrow. So, hospice nurse should remove this Gupta catheter tomorrow. Final Diagnoses: 1. Brain tumor. 2. 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 3. Chronic obstructive pulmonary disease. 4. Rheumatoid arthritis. 5. Osteoarthritis, multiple sites. 6. Gastroesophageal reflux disease. 7. Depression. 8. Anxiety. 9. Hyperlipidemia. SAMRA/MODL Voice ID: [id number] Report ID: [id number] [facility] MEDICAL CENTERMinnie
--- NOTE | 2020-01-17 14:49 | DS ---
Date of Discharge: 01/13/2020 The patient was hospitalized overnight because she had no place to ago. She will be discharged soon as she has place to go. She is to return office Friday at 9 o'clock [facility]. She had prescription for pain and antibiotics. JEREMIAS/GRIFFIN Voice ID: [id number] Report ID: [id number]
== END 2020-01-13 15:40 | disposition hospice, home (50) | DRG 55 ==
LOC: ER 20:42 → ERHOLD 23:58 → 4TH 01-12 02:26
PROVIDERS: ADMIT Internal Medicine; ATTEND Internal Medicine
DX: C79.31 Secondary malignant neoplasm of brain (principal); C34.90 Malignant neoplasm of unspecified part of unspecified bronchus or lung; J44.9 Chronic obstructive pulmonary disease, unspecified; K21.9 Gastro-esophageal reflux disease without esophagitis; E78.5 Hyperlipidemia, unspecified; M19.90 Unspecified osteoarthritis, unspecified site; M06.9 Rheumatoid arthritis, unspecified; F32.9 Major depressive disorder, single episode, unspecified; F41.9 Anxiety disorder, unspecified; Z66 Do not resuscitate; Z99.81 Dependence on supplemental oxygen; Z20.828 Contact with and (suspected) exposure to other viral communicable diseases
CPT/HCPCS: 36415; 51702; 70450; 71045; 80048; 80076; 83735; 83880; 84145; 84484; 85025; 85610; 93005; 94640; 96374; 96375; 99285; J1100; J1953; J2270; J2405; J3010; J7030; U0002